=== PATIENT | female | born 1965 | race Caucasian/White ===

== ENCOUNTER → 2019-09-10 | Outpatient (CLI) | payer MEDICARE, BC | END | disposition home or self-care (01) | LOC: LAB SHORT 14:34 → LAB EV 14:34 | DX: N39.0 Urinary tract infection, site not specified (principal) | CPT/HCPCS: 87077; 87086; 87186 ==

== ENCOUNTER → 2020-06-15 | Outpatient (CLI) | payer MEDICARE, BC | END | disposition home or self-care (01) | LOC: LAB SHORT 18:05 → PLD 18:05 | DX: L72.3 Sebaceous cyst (principal) | CPT/HCPCS: 87070; 87075; 87205 ==

== ENCOUNTER 2021-08-29 17:18 | Emergency (ER) | payer MEDICARE, BC ==
[~2021-08-29] VITALS: Ht 170.2 cm; Wt 99.8 kg
== END 2021-08-29 18:13 | disposition home or self-care (01) ==
LOC: ER 17:18
DX: S46.912A Strain of unspecified muscle, fascia and tendon at shoulder and upper arm level, left arm, initial encounter (principal); Z88.8 Allergy status to other drugs, medicaments and biological substances; X58.XXXA Exposure to other specified factors, initial encounter
CPT/HCPCS: 99282

== ENCOUNTER → 2021-12-23 | Outpatient (CLI) | payer MEDICARE, BC ==
[2021-12-28 15:08] LABS: HPV 16 Negative (Negative); HPV 18 Negative (Negative); HPV OTHER HR TYPES Negative (Negative)
== END | disposition home or self-care (01) ==
LOC: LAB SHORT 09:15 → LAB 09:15
PROVIDERS: Physician Assistant
DX: N93.9 Abnormal uterine and vaginal bleeding, unspecified (principal)
CPT/HCPCS: 87624; G0145

== ENCOUNTER 2022-01-19 06:05 | Day surgery (SDC) | payer MEDICARE, BC ==
[~2022-01-19] VITALS: Ht 154.9 cm; Wt 98.1 kg
[~2022-01-19 06:05] MED LIST: ALORA1 EAC4 TOP; CELE200 PO; CELEXA40 M1 PO; ESZO2 PO; LANS15EC PO; LORA.5 PO; LOSA50 PO; Mirapex1 MG PO; PROGESTERONE100 M1 PO; TRAM50 PO
--- NOTE | 2022-01-19 07:31 | NUR ---
01/19/22 0731 Lexy Vaughn 0783 TIMEOUT TAKEN TO VERIFY CORRECT PT, SITE, PROCEEDURE AND ALLERGIES. PT ELECTED TO PROCEED WITH SHOULDER BLOCK. RELAXING MEDICATION PROVIDED BY . VS STABLE THROUGHOUT THE PROCEEDURE. PT TOLERATED WELL.
--- NOTE | 2022-01-19 08:08 | NUR ---
01/19/22 0808 Alpesh Miranda 2 CHLORAPREP STICKS USED FOR PREPPING ARM.
--- NOTE | 2022-01-19 09:11 | NUR ---
01/19/22 0911 Linda Hernandez PT. DENIES PAIN TO LEFT SHOULDER, PT. DENIES NAUSEA. PT. CAME OUT COUGHING. PT. ABLE TO FEEL TOUCH TO LEFT FINGERS BUT VERBALIZES THEY ARE NUMB.
--- NOTE | 2022-01-19 10:35 | NUR ---
01/19/22 1035 SANDI FRIEDMAN PT BP HIGH. SHE STATES THAT ELEVATED BP WAS D/T (SEPERATED) CAUSES HTN D/T INTENSENESS. REPEAT BP DONE AFTER LEFT ROOM.
== END 2022-01-19 10:30 | disposition home or self-care (01) ==
LOC: ORSCSDS 06:05
PROVIDERS: Orthopaedic Surgery
PROC: 0LQ24ZZ Repair Left Shoulder Tendon, Percutaneous Endoscopic Approach (ICD-10-PCS; principal; 2022-01-19 07:30)
PROC: 0RNK4ZZ Release Left Shoulder Joint, Percutaneous Endoscopic Approach (ICD-10-PCS; principal; 2022-01-19 07:30)
DX: S46.012A Strain of muscle(s) and tendon(s) of the rotator cuff of left shoulder, initial encounter (principal); F41.9 Anxiety disorder, unspecified; F32.A Depression, unspecified; I10 Essential (primary) hypertension; G25.81 Restless legs syndrome; K21.9 Gastro-esophageal reflux disease without esophagitis; E66.9 Obesity, unspecified; Z68.41 Body mass index [BMI] 40.0-44.9, adult; Z79.899 Other long term (current) drug therapy
CPT/HCPCS: A9270; C1713; J0171; J0690; J1100; J2250; J2370; J2405; J2704; J3010; J7120

== ENCOUNTER → 2022-03-29 | Outpatient (CLI) | payer MEDICARE, BC ==
[2022-03-29 09:35] LABS: BASOPHILS ABSOLUTE AUTO 0.04 K/mm3 (0.00-0.23); BASOPHILS PERCENT AUTO 1 % (0-2); EOSINOPHILS ABSOLUTE AUTO 0.05 K/mm3 (0.00-0.68); EOSINOPHILS PERCENT AUTO 1 % (0-6); Hematocrit 45.8 % (33.0-51.0); Hemoglobin 15.1 g/dL (11.5-16.0); IMMATURE GRAN ABSOLUTE AUTO 0.01 K/mm3 (0.00-0.10); IMMATURE GRAN PERCENT AUTO 0 % (0-1); LYMPHOCYTES ABSOLUTE AUTO 1.14 K/mm3 (0.84-5.20); LYMPHOCYTES PERCENT AUTO 27 % (21-46); MONOCYTES ABSOLUTE AUTO 0.61 K/mm3 (0.16-1.47); MONOCYTES PERCENT AUTO 14 % (4-13); Mean Corpuscular HGB 31.9 pg (26.0-34.0); Mean Corpuscular Volume 97 fL (80-100); Mean Platelet Volume 9.9 fL (9.1-12.4); NEUTROPHILS PERCENT AUTO 57 % (41-73); Platelet Count 242 K/mm3 (150-400); RDW Coefficient Variation 13.4 % (11.7-14.2); RDW Standard Deviation 48.2 fL (35.1-46.3); Red Blood Cell Count 4.73 M/mm3 (3.80-5.20); White Blood Cell Count 4.25 K/mm3 (4.00-11.30)
[2022-03-29 11:56] LABS: Albumin, Blood 3.8 g/dL (3.4-5.0); Albumin/Globulin Ratio 1.3 (0.8-1.8); Bilirubin, Total 0.5 mg/dL (0.1-1.0); Bun/Creatinine Ratio 19.1 (12.0-20.0); Creatinine, Blood 0.68 mg/dL (0.40-1.00); Potassium, Blood 4.2 mmol/L (3.5-5.5); Thyroid Stimulating Hormone 1.504 uIU/mL (0.360-4.800); Total Protein, Blood 6.8 g/dL (6.4-8.2)
== END | disposition home or self-care (01) ==
LOC: LAB 09:31 → LAB SHORT 09:31
PROVIDERS: Chiropractor
DX: R53.83 Other fatigue (principal)
CPT/HCPCS: 80053; 84443; 85025

== ENCOUNTER → 2022-05-03 | Outpatient (CLI) | payer MEDICARE, BC | END | disposition home or self-care (01) | LOC: PLD 11:02 → LAB SHORT 11:02 | DX: L57.0 Actinic keratosis (principal) | CPT/HCPCS: 88305 ==

== ENCOUNTER → 2022-05-24 | Outpatient (CLI) | payer MEDICARE, BC ==
[2022-05-24 12:10] LABS: Source, Urine Clean Catch
[2022-05-24 15:15] LABS: Appearance, Urine Clear (Clear); Bilirubin, Urine Neg (Neg); Blood, Urine 1+ (Neg); Color, Urine Yellow (P-Yellow); Glucose Qualitative, Urine Neg (Neg); Ketones, Urine Neg (Neg); Leukocyte Esterase, Urine Neg (Neg); Nitrite, Urine Neg (Neg); Protein, Urine 1+ (Neg); Specific Gravity, Urine 1.015 (1.003-1.022); Urobilinogen, Urine NORM (Normal)
[2022-05-24 15:28] LABS: White Blood Cells, Urine 0-2 /hpf (0-5)
[2022-05-24 15:29] LABS: Bacteria Few /hpf; Mucus Light (0-Heavy); Squamous Epithelial Cells Few /hpf (Few)
== END ==
LOC: LAB SHORT 12:08 → LAB 12:08
PROVIDERS: Obstetrics & Gynecology
DX: N39.3 Stress incontinence (female) (male) (principal)
CPT/HCPCS: 81001

== ENCOUNTER 2022-06-13 08:13 | Day surgery (SDC) | payer MEDICARE, BC ==
[~2022-06-13] VITALS: Ht 154.9 cm; Wt 102.7 kg
[2022-06-13] MEDS ORDERED: ABILIFY MYCITE2 M2 PO (08:30)
--- NOTE | 2022-06-13 09:19 | NUR ---
History, Chart, Medications and Allergies reviewed before start of procedure. Patient confirms NPO status and agrees with scheduled surgery. PT BELONG[facility]ED [facility].
--- NOTE | 2022-06-13 10:38 | NUR ---
06/13/22 1038 Radha Pineda HIRSCH CATHETER INSERTED BY SURGEON IN OR. CLEAR YELLOW URINE FLOWING.
--- NOTE | 2022-06-13 12:01 | NUR ---
REPORT GIVEN TO PEREZ RN APPROX [id number]
--- NOTE | 2022-06-13 12:37 | NUR ---
PT HAS NO C/O PAIN OR NAUSEA, PT DECLINED ALL PAIN MEDICATION. PT ABLE TO AMBULATE TO BATHROOM WITH STEADY GAIT AND DRESS INDEPENDENTLY. BLADDER TRIAL COMPLETE WITH 200CC INTO HIRSCH AND PT WAS ABLE TO URINATE 200CC INTO THE TOILET. Discharge instructions reviewed with patient. Patient verbalizes understanding. Copy given to patient to take home.PT HAS SCANT RED DRAINAGE TO ESTIVEN PAD. Discharged via wheelchair to private car for ride home. PT VS STABLE THROUGHOUT RECOVERY.
== END 2022-06-13 12:48 | disposition home or self-care (01) ==
LOC: ORSCMMR 08:13 → ORD 11:30 → ORSCMMR 12:48
PROVIDERS: Obstetrics & Gynecology
PROC: 0TSD0ZZ Reposition Urethra, Open Approach (ICD-10-PCS; principal; 2022-06-13 09:30)
DX: N39.3 Stress incontinence (female) (male) (principal); I10 Essential (primary) hypertension; E11.9 Type 2 diabetes mellitus without complications; K21.9 Gastro-esophageal reflux disease without esophagitis; E66.01 Morbid (severe) obesity due to excess calories; Z68.41 Body mass index [BMI] 40.0-44.9, adult; Z79.899 Other long term (current) drug therapy
CPT/HCPCS: C1771; J0171; J1100; J1885; J1956; J2250; J2405; J2704; J2710; J3010; J7120

== ENCOUNTER → 2023-06-17 | Outpatient (CLI) | payer MEDICARE, BC ==
[~2023-06-17] MED LIST changes: +ABILIFY MYCITE2 M2 PO
[2023-06-18 08:22] LABS: Candida species (DNA Probe) Negative (NEGATIVE); G. vaginalis (DNA Probe) Positive (NEGATIVE); T. vaginalis (DNA Probe) Negative (NEGATIVE)
[2023-06-19 00:07] LABS: CHLAMYDIA TRACHOMATIS, NAA Negative (Negative)
== END ==
LOC: LAB 11:38 → LAB SHORT 11:38
PROVIDERS: Emergency Medicine
DX: N39.0 Urinary tract infection, site not specified (principal); R10.30 Lower abdominal pain, unspecified
CPT/HCPCS: 87077; 87086; 87186; 87480; 87491; 87510; 87591; 87660

== ENCOUNTER → 2023-07-27 | Outpatient (CLI) | payer MEDICARE, BC | LOC: LAB SHORT 09:30 → LAB 09:30 | DX: R30.0 Dysuria (principal) | CPT/HCPCS: 87086 ==

== ENCOUNTER → 2024-12-03 | Outpatient (CLI) | payer MEDICARE, BC | END | disposition home or self-care (01) | LOC: LAB SHORT 07:37 → LAB 07:37 | DX: N32.89 Other specified disorders of bladder (principal); N95.0 Postmenopausal bleeding | CPT/HCPCS: 88305 ==

== ENCOUNTER → 2024-12-12 | Outpatient (CLI) | payer MEDICARE, BC | LOC: LAB 18:46 → LAB SHORT 18:46 | DX: N39.0 Urinary tract infection, site not specified (principal); R31.9 Hematuria, unspecified | CPT/HCPCS: 87077; 87086; 87186 ==

== ENCOUNTER → 2025-03-12 | Outpatient (CLI) | payer MEDICARE, BC ==
[2025-03-12 12:03] LABS: Source, Urine Clean Catch
[2025-03-12 13:12] LABS: Bilirubin, Urine Neg (Neg); Color, Urine Yellow (P-Yellow); Glucose Qualitative, Urine Neg (Neg); Ketones, Urine 1+ (Neg); Leukocyte Esterase, Urine 1+ (Neg); Protein, Urine 2+ (Neg); Specific Gravity, Urine 1.010 (1.003-1.022); Urobilinogen, Urine 1+ (Normal)
[2025-03-12 15:08] LABS: Chlamydia Trachomatis Vaginal NOT DETECTED (NOT DETECT); Neisseria Gonorrhoea Vaginal NOT DETECTED (NOT DETECT)
== END | disposition home or self-care (01) ==
LOC: LAB 11:59 → LAB SHORT 11:59
PROVIDERS: Obstetrics & Gynecology
DX: Z01.812 Encounter for preprocedural laboratory examination (principal); Z11.3 Encounter for screening for infections with a predominantly sexual mode of transmission
CPT/HCPCS: 81001; 87086; 87491; 87591

== ENCOUNTER 2025-03-26 09:31 | Day surgery (SDC) | payer MEDICARE, BC ==
[~2025-03-26] VITALS: Ht 157.5 cm; Wt 96.8 kg
[2025-03-26] VITALS (7 sets, daily range): BP systolic 117–152; BP diastolic 74–93
[~2025-03-26 09:31] MED LIST changes: -Mirapex1 MG PO; +PRAM.125 PO
--- NOTE | 2025-03-26 10:40 | NUR ---
Ambulatory in Day Surgery History, Chart, Medications and Allergies reviewed before start of procedure. Pre-Op teaching done. Pt verbalizes understanding. Patient States Post-Procedure ride home has been arranged.
[2025-03-26] MEDS ORDERED: HYDROmorphone HCl/Pf 1MG SYR IV PRN (10:45)
[2025-03-26] MEDS ORDERED: HydrALAZINE HCl 20 MG / ML 1ML Vial IV PRN (10:45)
[2025-03-26] MEDS ORDERED: FentaNYL Citrate 50 MCG/ML 2 ML Injection IV PRN ×2 (10:45)
[2025-03-26] MEDS ORDERED: Metoclopramide HCl 5MG / ML 2ML Vial IV PRN (10:45)
[2025-03-26] MEDS ORDERED: Ondansetron HCl 2 MG / ML 2ML Vial IV PRN (10:45)
[2025-03-26] MEDS ORDERED: Morphine Sulfate 4 MG/1 ML Injection IV PRN (10:45)
[2025-03-26] MEDS ORDERED: FentaNYL Citrate 50 MCG/ML 5 ML Injection ONE (12:51)
[2025-03-26] MEDS ORDERED: Midazolam HCl 1MG / ML 2ML Vial ONE (12:51)
[2025-03-26] MEDS ORDERED: Metoclopramide HCl 5MG / ML 2ML Vial ONE (13:12)
[2025-03-26] MEDS ORDERED: Ondansetron HCl 2 MG / ML 2ML Vial ONE (13:12)
[2025-03-26] MEDS ORDERED: Sugammadex Sodium 200 MG/2ML SDV (100 MG/ML) ONE (13:13)
[2025-03-26] MEDS ORDERED: Labetalol HCL 5 MG/ML 4ML Injection (Single Dose) ONE (13:26)
--- NOTE | 2025-03-26 14:26 | NUR ---
Discharge instructions reviewed with patient. Patient verbalizes understanding. Copy given to patient to take home. Peripad with scant drainage. Patient States Post-Procedure ride home has been arranged. Discharged via wheelchair to private car for ride home.
== END 2025-03-26 14:28 | disposition home or self-care (01) ==
LOC: ORSCMMR 09:31 → ORD 11:00 → ORSCMMR 14:28
PROVIDERS: Obstetrics & Gynecology
PROC: 0UB98ZZ Excision of Uterus, Via Natural or Artificial Opening Endoscopic (ICD-10-PCS; principal; 2025-03-26 12:00)
DX: N95.0 Postmenopausal bleeding (principal); I10 Essential (primary) hypertension; E78.2 Mixed hyperlipidemia; K21.9 Gastro-esophageal reflux disease without esophagitis; E66.9 Obesity, unspecified; Z68.39 Body mass index [BMI] 39.0-39.9, adult; F41.8 Other specified anxiety disorders; Z79.899 Other long term (current) drug therapy
CPT/HCPCS: 88305; J2250; J2405; J2704; J2765; J3010; J7120